=== PATIENT | male | born 1955 | race Caucasian/White ===

== ENCOUNTER 2020-09-21 08:14 | Day surgery (SDC) | payer MEDICAID ==
[~2020-09-21 08:14] MED LIST: Albuterol 0.083% 2.5 MG/3 ML Neb Soln NEB PRN; Albuterol 0.083% 2.5 MG/3 ML Neb Soln NEB SCH; Lactated Ringers 1,000 ML IV SCH; Lidocaine 1%/Sod Bicarbonate in NS 8.4% 1 ML Syringe IDERM PRN; Sodium Chloride 0.9% 10 ML Syringe FLUSH PRN
--- NOTE | 2020-09-21 08:39 | PCM.PREANE ---
Preanesthetic Assessment - Procedure Proposed Procedure: Bone Marrow Biopsy - Anesthesia/Transfusion/Family Hx Anesthesia History: Prior Anesthesia Without Reaction Family History of Anesthesia Reaction: No Transfusion History: No Prior Transfusion(s) Intubation History: Unknown - Review of Systems General: No Symptoms Pulmonary: Wheezing, Cough (Smoker cough) Cardiovascular: No Symptoms, Palpitations (Patient experiences palpitations and diaphoretic when patient does not drink ETOH) Gastrointestinal: Constipation Neurological: Weakness (Weakness in bilateral legs) Other: Reports: Easy Bruising - Physical Assessment NPO Status Date: 09/20/20 NPO Status Time: 23:59 Vital Signs: BP: 154/86 HR 72 RR 16 97.6 95% Height: 1.68 m Weight: 46 kg ASA Class: 3 Mental Status: Alert & Oriented x3 Airway Class: Mallampati = 2 Dentition: Reports: Edentulous Thyro-Mental Finger Breadths: 3 Mouth Opening Finger Breadths: 3 ROM/Head Extension: Full Lungs: Normal Respiratory Effort, Wheezing Cardiovascular: Regular Rate, Regular Rhythm - Lab Values: Labs reviewed and okay to proceed - Allergies Allergies/Adverse Reactions: Allergies Allergy/AdvReac Type Severity Reaction Status Date / Time No Known Allergies Allergy Verified 09/11/20 12:36 - Blood Blood Available: No Product(s) Available: None - Anesthesia Plan Pre-Op Medication Ordered: None - Acknowledgements Anesthesia Type Planned: MAC Pt an Appropriate Candidate for the Planned Anesthesia: Yes Alternatives and Risks of Anesthesia Discussed w Pt/Guardian: Yes Pt/Guardian Understands and Agrees with Anesthesia Plan: Yes PreAnesthesia Questionnaire HEENT History: Reports: Cataract Respiratory History: Reports: COPD, Pneumonia, Recurrent, Pneumothorax Gastrointestinal History: Reports: Hemorrhoids, Other (See Below) Other Gastrointestinal History: rectal bleeding, elevated LFT's Other Musculoskeletal History: right rib fracture Psychiatric History: Reports: Addiction, Other (See Below) Other Psychiatric History: ETOH abuse Oncologic (Cancer) History: Reports: Squamous Cell Carcinoma Other Oncologic History: History of cancer 2019 s/p excision/radiation Dermatologic History: Reports: Cellulitis Other Dermatologic History: back and neck lesion - Past Surgical History HEENT Surgical History: Reports: Cataract Surgery, Eye Surgery, Oral Surgery, Other (See Below) Other HEENT Surgeries/Procedures: partial glossectomy, neck dissection bilateral neck GI Surgical History: Reports: Colonoscopy, EGD, Hernia, Inguinal, Hernia Repair/Other Other GI Surgeries/Procedures: Hemorroidectomy, hernia repair bilateral Other Dermatological Surgeries/Procedures: I+D left back 2020 - SUBSTANCE USE Tobacco Use Status *Q: Current Every Day Tobacco User Tobacco Use Within Last Twelve Months: Cigarettes Days Per Week of Alcohol Use: 7 Number of Drinks Per Day: 2 Total Drinks Per Week: 14 Date of Last Drink: 09/20/20 Time of Last Drink: 23:59 Recreational Drug Use History: No - HOME MEDS Home Medications: Home Meds Albuterol Sulfate [Albuterol Sulfate HFA] 1 puff INH ASDIRECTED PRN 08/28/20 [History] Albuterol/Ipratropium [DuoNeb 3.0-0.5 MG/3 ML] 1 applic INH ASDIRECTED PRN 08/28/20 [History] Tiotropium [Spiriva HandiHaler] 1 puff INH ASDIRECTED PRN 08/28/20 [History] - CURRENT (IN HOUSE) MEDS Current Meds: Current Medications Albuterol (Albuterol 0.083% 2.5 Mg/3 Ml Neb Soln) 2.5 mg NEB ONETIME PRN PRN Reason: COPD Stop: 09/21/20 18:00 Albuterol (Albuterol 0.083% 2.5 Mg/3 Ml Neb Soln) 2.5 mg NEB ONETIME ONE Stop: 09/21/20 08:34 Lactated Ringer's (Ringers, Lactated) 1,000 mls @ 125 mls/hr IV ASDIRECTED RAHUL Stop: 09/21/20 23:00 Lidocaine/Sodium Bicarbonate (Lidocaine 1%/Sod Bicarbonate In Ns 8.4% 1 Ml Syringe) 0.25 ml IDERM ONETIME PRN PRN Reason: Prior to IV Start Stop: 09/21/20 18:00 Sodium Chloride (Sodium Chloride 0.9% 10 Ml Syringe) 10 ml FLUSH ASDIRECTED PRN PRN Reason: Keep Vein Open Stop: 09/21/20 18:00 Discontinued Medications Albuterol (Albuterol 0.083% 2.5 Mg/3 Ml Neb Soln) 2.5 mg NEB ONETIME RAHUL Stop: 08/28/20 18:00 Lactated Ringer's (Ringers, Lactated) 1,000 mls @ 125 mls/hr IV ASDIRECTED RAHUL Stop: 08/28/20 23:00 Lactated Ringer's (Ringers, Lactated) 1,000 mls @ 125 mls/hr IV ASDIRECTED RAHUL Stop: 09/14/20 23:00 Lidocaine/Sodium Bicarbonate (Lidocaine 1%/Sod Bicarbonate In Ns 8.4% 1 Ml Syringe) 0.25 ml IDERM ONETIME PRN PRN Reason: Prior to IV Start Stop: 08/28/20 18:00 Lidocaine/Sodium Bicarbonate (Lidocaine 1%/Sod Bicarbonate In Ns 8.4% 1 Ml Syringe) 0.25 ml IDERM ONETIME PRN PRN Reason: Prior to IV Start Stop: 09/14/20 18:00 Sodium Chloride (Sodium Chloride 0.9% 10 Ml Syringe) 10 ml FLUSH ASDIRECTED PRN PRN Reason: Keep Vein Open Stop: 08/28/20 18:00 Sodium Chloride (Sodium Chloride 0.9% 10 Ml Syringe) 10 ml FLUSH ASDIRECTED PRN PRN Reason: Keep Vein Open Stop: 09/14/20 18:00
[2020-09-21] MEDS ORDERED: Lidocaine 1% 4 ML ONE (08:40)
[2020-09-21] MEDS ORDERED: Propofol 200 MG/20 ML SDV ONE (08:40)
[2020-09-21] MEDS ORDERED: fentaNYL 100 MCG/2 ML SDV ONE (08:41)
[2020-09-21] MEDS ORDERED: Midazolam 1 MG/ML 2 ML SDV ONE (08:41)
[2020-09-21] MEDS ORDERED: Lidocaine 1% with EPINEPHrine 1:100,000 10 ML MDV ONE (08:43)
[2020-09-21] MEDS ORDERED: Albuterol 0.083% 2.5 MG/3 ML Neb Soln NEB ONE (09:00)
[2020-09-21] MEDS ORDERED: Heparin Sodium 5,000 Units/ML Vial ONE (09:28)
--- NOTE | 2020-09-21 10:02 | PCM48HPAN ---
Post Anesthesia Note - EVALUATION WITHIN 48HRS OF ANESTHETIC Vital Signs in Normal Range: Yes Patient Participated in Evaluation: Yes Respiratory Function Stable: Yes Airway Patent: Yes Cardiovascular Function Stable: Yes Hydration Status Stable: Yes Pain Control Satisfactory: Yes Nausea and Vomiting Control Satisfactory: Yes Mental Status Recovered: Yes Vital Signs: Last Vital Signs Temp 36.4 C 09/21/20 08:20 Pulse 72 09/21/20 08:20 Resp 16 09/21/20 08:20 BP 154/86 H 09/21/20 08:20 Pulse Ox 95 09/21/20 08:20
--- NOTE | 2020-09-21 10:18 | PROC ---
DATE OF OPERATION: 09/21/2020 SURGEON: Júnior Lewis MD PREOPERATIVE DIAGNOSIS: Pancytopenia. POSTOPERATIVE DIAGNOSIS: Pancytopenia. PROCEDURE: Bone marrow biopsy and aspiration from the right hip. ANESTHESIA: Monitored anesthesia care with local anesthetic consisting of 1% lidocaine with epinephrine. COMPLICATIONS: None. ESTIMATED BLOOD LOSS: Minimal. INDICATION AND CONSENT: Mr. Sanchez is a 64-year-old male with prior history of head and neck cancer that was treated a few years ago. The patient in the last few months has been developing pancytopenia that is persistent. He was seen by Dr. Vidal, who recommended bone marrow biopsy and aspiration to further investigate. The patient was seen in my clinic and deemed to be a good candidate for this procedure. We discussed risks, benefits, and alternatives. Informed consent was obtained. DETAILS OF PROCEDURE: The patient was met in the preprocedure area and found to be stable, taken to the procedure room, placed in left lateral decubitus position. Monitored anesthesia care was induced. Time-out was performed. Area in the right posterior iliac crest was palpated and identified and marked and then prepped and draped in the usual sterile fashion. Time-out was performed again. I began the procedure by injecting lidocaine at the skin as well as the deeper tissue including the periosteum, around the intended biopsy site. A small claudine was made with #11 blade. Then, a core needle bone marrow biopsy needle was placed through the core into the cortex. 10 mL of bone marrow aspirate was taken and passed off for pathologic analysis. Then, a core of bone marrow about 1 cm was taken and passed off for pathology. Pressure was applied for 2 minutes, there was no bleeding, and area was closed with Dermabond after being cleaned with chlorhexidine followed by pressure dressing. The patient will be allowed to return home today to keep pressure dressing for 6 hours and follow up with Dr. Vidal as previously scheduled. The patient can follow up with me as needed or if any complications arise. EBL was minimal. MMODAL /[id number] MTDFidel
== END 2020-09-21 12:25 | disposition home or self-care (01) ==
LOC: JD.SDS 08:14
PROVIDERS: ATTEND Surgery
DX: D61.818 Other pancytopenia (principal); D53.9 Nutritional anemia, unspecified; D69.6 Thrombocytopenia, unspecified; D70.9 Neutropenia, unspecified; J44.9 Chronic obstructive pulmonary disease, unspecified; F17.210 Nicotine dependence, cigarettes, uncomplicated; Z79.899 Other long term (current) drug therapy
CPT/HCPCS: 38221; 85007; 85027; 85046; 88237; 94640; J1644; J2250; J2704; J3010; J7120; 01112; 36415; J1642